=== PATIENT | male | born 1945 | race Caucasian/White ===

== ENCOUNTER 2019-11-13 13:50 | Inpatient (IN) | payer OTHER, BC ==
--- NOTE | 2019-11-13 14:18 | PDOC ---
History of Present Illness - General Chief Complaint: Urinary Problem Stated Complaint: URINARY PROBLEM/KIDNEY STONE Time Seen by Provider: 11/13/19 14:17 - History of Present Illness Initial Comments: HPI: 74yo M with PMH of kidney transplant, triple bypass, HTN, HLD, borderline DM, prostate CA s/p radiation ten years ago, COPD presenting with urinary retention. Patient states he has not urinated since yesterday afternoon. Has had hematuria for the last two weeks. Noticed that he may have been urinating in small quantities recently. Saw his urologist yesterday for a planned cystoscope. Per the patient, the urologist saw a "large stone." There was a plan to take care of the stone with a procedure on Friday at [facility]. Called his urologist two hours ago when he continued to have urinary retention. Per recent lab work, kidney function has been normal. No fevers or chills. PCP: Dr. Slim Montalvo Urology: Dr. Hidalgo ROS: Constitutional: no fever, no chills HEENT: no throat pain, no dysphagia Cardiovascular: no chest pain, no palpitations Respiratory: no cough, no shortness of breath Gastrointestinal: no abdominal pain, no nausea Genitourinary: +urinary retention, +hematuria Musculoskeletal: no myalgia, no arthralgia Skin: no rash, no itching Neurologic: no headache, no weakness Psych: no agitation, no anxiety PE: General: Awake, alert, and fully oriented, in no acute distress Head: No signs of trauma Eyes: EOMI, sclera anicteric ENT: Moist mucus membranes Neck: Normal ROM, supple Lungs: Lungs clear, Normal breath sounds Cardio: Regular rhythm, S1 and S2 present Abdomen: Tender to palpation in lower abdomen. No guarding, no rebound, no masses. No CVA tenderness. Extremities: Normal range of motion, Distal pulses present SKIN: Warm, Dry, normal turgor Neurologic: Cranial nerves II through XII grossly intact. Normal speech ED Course/MDM: DDX including but not limited to nephrolithiasis, UTI, BPH, cauda equina Labs, EKG, CXR CT spiral stone study 11/13/19 14:[address] [place] the urge to urinate; able to urinate, given urinal to collect sample 11/13/19 15:34 CT as reported by radiology: "Olga Matailion Name: ZAYRA OSULLIVAN DEPARTMENT OF RADIOLOGY Phys: Janine VargasViola RESIDENT : 1945 Age: 74 Sex : M [facility] Acct: [id number] Loc: [facility] Exam Date: 11/13/19 Status: DOMONIQUE Estrada [id number] Unit Number: [id number] EXAM#: TYPE/EXAM: RESULT: [id number] CT/SPIRAL - RENAL-STONE CT Renal ultrasound Clinical information: history of kidney transplant, urinary retention, ? stone Multiplanar imaging was performed. No intravenous or enteric contrast was administered. No prior CT studies available at this facility for direct comparison. In comparison to an MRI exam of 2011 note is made of interval development of marked bilateral atrophy involving the [place] kidneys with interval right lower quadrant renal transplantation. The right lower quadrant renal transplant emesis no evidence of nephrolithiasis or hydronephrosis. Bilateral 0.3 cm renal calcifications are noted probably representing nonobstructing calculi, less likely dystrophic parenchymal calcifications. No ureteral or urinary bladder calculus is visualized. A 3.7 x 3 cm fluid structure is noted adjacent to the lower pole of the right lower quadrant renal transplant possibly representing a lymphocele and less likely a urinary bladder diverticulum. Adjacent surgical clips are noted. No urinary bladder calculus is seen. The current urinary bladder volume is approximately 400 mL. No gross urinary tract mass lesion is identified on noncontrast imaging. Status post prostate interstitial brachytherapy. The periprostatic fat planes demonstrate no obvious pathology. No lymphadenopathy is identified on the basis of size criteria. Small bilateral inguinal hernias containing fat only The common bile duct is mildly dilated with a 1.2 cm diameter, previously measuring 1 cm at the time of the 2011 MRI exam. The gallbladder, liver, spleen , pancreas and adrenal glands demonstrate no discrete noncontrast pathology. There is no aortic aneurysm. Very extensive atherosclerotic thoracic calcifications are noted. Prominent atherosclerotic coronary artery calcifications are seen. There is partial imaging of cardiomegaly. The visualized osseous structures demonstrate no obvious CT evidence of acute pathology or neoplastic disease. Impression: The urinary bladder demonstrates minimal to mild overdistention (current volume approximate 4 mL) which may be on a physiologic basis versus mild/early retention. If clinically indicated correlation with pre and post void sonography may be performed. Status post prostate brachytherapy. A right lower quadrant renal transplant is noted without hydronephrosis or nephrolithiasis. Marked atrophy is seen involving the [place] kidneys bilaterally. Bilateral 0.3 cm calcifications are noted within the [place] kidneys probably representing nonobstructive calculi, less likely dystrophic parenchymal calcifications. No ureteral urinary bladder calculus is seen. A 3.7 x 3 cm fluid structure is noted interposed between the lower pole of the right lower quadrant renal transplant and the urinary bladder probably representing a lymphocele and less likely a urinary bladder diverticulum. Extensive atherosclerotic vessel calcifications are seen. There is partial imaging of cardiomegaly. The common bile duct is mildly dilated with a 1.2 cm diameter, previously measured 1 cm at the time of a 2011 abdomen MRI exam. Clinical/laboratory correlation is suggested. Follow-up imaging as clinically indicated. Reported By: Yong Nair MD 11/13/19 1614 " Could patient be having obstructive uropathy 11/13/19 16:26 Pending trial void 11/13/19 16:37 CBC WBC 8.1 K/mm3 (4.0-10.0) 11/13/19 15:03 RBC 4.50 M/mm3 (4.00-5.60) 11/13/19 15:03 Hgb 12.7 GM/dL (11.7-16.9) 11/13/19 15:03 Hct 38.9 % (35.4-49) 11/13/19 15:03 MCV 86.4 fl (80-96) 11/13/19 15:03 MCH 28.2 pg (25.7-33.7) 11/13/19 15:03 MCHC 32.6 g/dl (32.0-35.9) 11/13/19 15:03 RDW 14.8 % (11.9-15.9) 11/13/19 15:03 Plt Count 177 K/MM3 (134-434) 11/13/19 15:03 MPV 9.4 fl (7.5-11.1) D 11/13/19 15:03 Absolute Neuts (auto) 7.1 K/mm3 (1.5-8.0) 11/13/19 15:03 Neutrophils % 88.2 % (42.8-82.8) H 11/13/19 15:03 Lymphocytes % 6.5 % (8-40) L 11/13/19 15:03 Monocytes % 4.5 % (3.8-10.2) 11/13/19 15:03 Eosinophils % 0.2 % (0-4.5) 11/13/19 15:03 Basophils % 0.6 % (0-2.0) 11/13/19 15:03 Nucleated RBC % 0 % (0-0) 11/13/19 15:03 No leukocytosis CMP Sodium 139 mmol/L (136-145) 11/13/19 15:03 Potassium 5.5 mmol/L (3.5-5.1) H 11/13/19 15:03 Chloride 109 mmol/L (98-107) H 11/13/19 15:03 Carbon Dioxide 26 mmol/L (21-32) 11/13/19 15:03 Anion Gap 5 MMOL/L (8-16) L 11/13/19 15:03 BUN 20.7 mg/dL (7-18) H 11/13/19 15:03 Creatinine 1.6 mg/dL (0.55-1.3) H 11/13/19 15:03 Est GFR (CKD-EPI)AfAm 48.81 11/13/19 15:03 Est GFR (CKD-EPI)NonAf 42.11 11/13/19 15:03 Random Glucose 139 mg/dL (74-106) H 11/13/19 15:03 Calcium 9.2 mg/dL (8.5-10.1) 11/13/19 15:03 Total Bilirubin 0.5 mg/dL (0.2-1) 11/13/19 15:03 AST 24 U/L (15-37) 11/13/19 15:03 ALT 19 U/L (13-61) 11/13/19 15:03 Alkaline Phosphatase 69 U/L (45-117) 11/13/19 15:03 Troponin I 0.04 ng/ml (0.00-0.05) 11/13/19 15:03 Total Protein 7.2 g/dl (6.4-8.2) 11/13/19 15:03 Albumin 3.9 g/dl (3.4-5.0) 11/13/19 15:03 Potassium elevated Cr elevated Tpn indeterminate Patient's last Cr was 1.1 in September 2019 at [facility] to transplant team Patient's transplant physician is Dr. Hiral Wadsworth 11/13/19 17:22 EKG: rate 59, Qtc 473, concern for deepened twi on V4-V6 when compared to EKG Discussed case with Dr. Villa, transplant surgeon at [facility]. Stat transfer is not required. If patient has repeat retention, he can go to [facility] for urology evaluation. Plan to observe patient to monitor for repeat hematurian as patient is on Eliquis Call to Dr. Hidalgo's office, - no answer Call to Dr. Hidalgo's cell, . Discussed case with him Patient had a urethral stone seen on cystocope yesterday Plan for admission 11/13/19 17:[address] Montalvo's service, , for admission Awaiting callback 11/13/19 17:[address] Montalvo who accepted the patient for admission under himself 11/13/19 17:[address] Corona. Discussed case with him. He recommended dose of ceftriaxone. Ordered 11/13/19 19:34 Past History - Past Medical History Allergies/Adverse Reactions: Allergies Allergy/AdvReac Type Severity Reaction Status Date / Time No Known Allergies Allergy Verified 11/13/19 14:00 Home Medications: Ambulatory Orders Apixaban [Eliquis] 11/13/19 Apixaban [Eliquis] 5 mg PO 11/13/19 Aspirin 81 mg PO 11/13/19 Atorvastatin Ca [Lipitor] 40 mg PO HS 11/13/19 Cholecalciferol (Vitamin D3) [Vitamin D3 -] 1,000 unit PO DAILY 11/13/19 Dofetilide 125 mg PO DAILY 11/13/19 Magnesium Oxide 400 mg PO 11/13/19 Metoprolol Succinate 50 mg PO DAILY 11/13/19 Mycophenolate Mofetil [Cellcept -] 500 mg PO BID 11/13/19 Tacrolimus 2.5 mg PO DAILY 11/13/19 Vitamin B Complex 1 each PO 11/13/19 predniSONE [Deltasone -] 5 mg PO DAILY 11/13/19 COPD: No Diabetes: Yes Disorders: Yes (urethra stone needs sx on friday.) HTN: Yes - Surgical History Abdominal Surgery: Yes (kidney transplant at [facility] on 01/08/2018) - Psycho Social/Smoking Cessation Hx Smoking History: Unknown if ever smoked Hx Alcohol Use: No Drug/Substance Use Hx: No *Physical Exam - Vital Signs Last Vital Signs Temp Pulse Resp BP Pulse Ox 97.5 F L 67 16 168/86 100 11/13/19 13:55 11/13/19 13:55 11/13/19 13:55 11/13/19 13:55 11/13/19 13:55 ED Treatment Course - LABORATORY CBC & Chemistry Diagram: 11/13/19 15:03 11/13/19 15:03 Discharge - Discharge Information Problems reviewed: Yes Clinical Impression/Diagnosis: Postprocedural urinary retention Hematuria Qualifiers: Hematuria type: gross Qualified Code(s): R31.0 - Gross hematuria Condition: Guarded - Admission Yes - Follow up/Referral - Patient Discharge Instructions - Post Discharge Activity
[2019-11-13] MEDS ORDERED: SODIUM CHLORIDE 1,000 ML IV STA (15:46)
[2019-11-13] MEDS ORDERED: LIDOCAINE HCL 2% JELLY 10 ML CARTRIDGE ONE (15:50)
[2019-11-13 16:15] LABS: EPI CELLS 0 /HPF (0-5/HPF); HYALINE CASTS 55 /lpf (0-8); URINE APPEARANCE TURBID; URINE BACTERIA 0 /hpf (NEGATIVE); URINE BILIRUBIN 2+ (NEGATIVE); URINE COLOR RED; URINE GLUCOSE (UA) NEGATIVE (NEGATIVE); URINE KETONE NEGATIVE (NEGATIVE); URINE LEUK ESTERASE 2+ (NEGATIVE); URINE NITRITE POSITIVE (NEGATIVE); URINE PROTEIN 2+ (NEGATIVE); URINE RBC 1651 /hpf (0-4); URINE UROBILINOGEN 0.2 mg/dL (0.2-1.0); URINE WBC 2 /hpf (0-5)
[2019-11-13 16:27] LABS: INR 1.21 (0.83-1.09); PROTHROMBIN TIME (PATIENT) 14.3 SEC (9.7-13.0)
[2019-11-13 16:29] LABS: ACTIVATED PTT 35.9 SECONDS (25.2-36.5)
[2019-11-13 16:33] LABS: ALBUMIN 3.9 g/dl (3.4-5.0); BILIRUBIN,TOTAL 0.5 mg/dL (0.2-1); BLOOD UREA NITROGEN 20.7 mg/dL (7-18); CALCIUM 9.2 mg/dL (8.5-10.1); CREATININE 1.6 mg/dL (0.55-1.3); POTASSIUM 5.5 mmol/L (3.5-5.1); TOT PROT 7.2 g/dl (6.4-8.2)
--- NOTE | 2019-11-13 16:33 | PDOC ---
Documentation entered by Paul Carlton SCRIBE, acting as scribe for Mercedes Simmons MD. Mercedes Simmons MD: This documentation has been prepared by the Brandt leavitt Nirvannie, SCRIBE, under my direction and personally reviewed by me in its entirety. I confirm that the documentation accurately reflects all work, treatment, procedures, and medical decision making performed by me. Attending Attestation - Resident Resident Name: Viola Vargas - ED Attending Attestation I have performed the following: I have examined & evaluated the patient, The case was reviewed & discussed with the resident, I agree w/resident's findings & plan, Exceptions are as noted - HPI HPI: 11/13/19 15:27 The patient is a 74 year old male, with a significant past medical history of HTN, HLD, borderline DM, triple bypass, renal transplant (at [facility] 18), prostate cancer (s/p radiation approx 10 years), and COPD, who presents to the emergency department with 1 day of urinary retention. As per patient, he has been unable to urinate since yesterday afternoon and endorses 2 weeks of hematuria. Patient also notes his urine when he was able to produce has been less in quantity. Patient is currently being worked up with a urologist (last saw yesterday) and is planned for a cystoscope Friday secondary to a large stone. He denies any recent fevers, chills, headache or dizziness. He denies any recent nausea, vomit, diarrhea or constipation. He denies any recent chest pain or shortness of breath. Allergies: NKDA Primary Care Physician: Dr. Kirby Montalvo - Physicial Exam PE: 11/13/19 16:31 awake alert lungs clear bilat heart rrr no mrh abd soft obese. no palp bladder distension ( post void) no cva tenderness. alert oriented x 3. - Medical Decision Making 11/13/19 16:32 74 yo M h/o bph cabg, hematuria. plan ct a/p labs ua pt voided in ED, feels much improved. will page dr aburto. ct no hydro in tranplanted kidney. quesitonable lympocele vs. bladder diverticulum will likely dc home.
[2019-11-13 16:47] LABS: BASO % 0.6 % (0-2.0); EOS % 0.2 % (0-4.5); HEMATOCRIT 38.9 % (35.4-49); HEMOGLOBIN 12.7 GM/dL (11.7-16.9); LYMPH % 6.5 % (8-40); MCH 28.2 pg (25.7-33.7); MCHC 32.6 g/dl (32.0-35.9); MEAN CELL VOLUME 86.4 fl (80-96); MEAN PLT VOLUME 9.4 fl (7.5-11.1); MONO % 4.5 % (3.8-10.2); NEUT % 88.2 % (42.8-82.8); PLATELET COUNT 177 K/MM3 (134-434); RDW 14.8 % (11.9-15.9); WHITE BLOOD COUNT 8.1 K/mm3 (4.0-10.0)
--- NOTE | 2019-11-13 16:51 | EKG ---
Test Reason : Blood Pressure : / mmHG Vent. Rate : 059 BPM Atrial Rate : 059 BPM P-R Int : 178 ms QRS Dur : 090 ms QT Int : 478 ms P-R-T Axes : 056 059 223 degrees QTc Int : 473 ms SINUS BRADYCARDIA WITH PREMATURE ATRIAL COMPLEXES MINIMAL VOLTAGE CRITERIA FOR LVH, MAY BE NORMAL VARIANT PROLONGED QT ABNORMAL ECG WHEN COMPARED WITH ECG OF 26-FEB-2010 16:07, PREMATURE ATRIAL COMPLEXES ARE NOW PRESENT ST NOW DEPRESSED IN INFERIOR LEADS T WAVE INVERSION NOW EVIDENT IN INFERIOR LEADS T WAVE INVERSION MORE EVIDENT IN ANTERIOR LEADS CLINICAL CORRELATION IS RECOMMENDED Confirmed by LETTY BHATTI, BRUNILDA ([id number]) on 11/13/2019 4:51:23 PM Referred By: Confirmed By:BRUNILDA SAENZ MD
[2019-11-13] MEDS ORDERED: CEFTRIAXONE 1 GM/50 ML BAG ONE (19:55)
[2019-11-13 22:04] VITALS: BMI 31.1
[2019-11-13] MEDS ORDERED: SODIUM POLYSTYRENE SULFONATE 15 GM/60 ML BOTTLE PO ONE (23:30)
[2019-11-14 07:26] LABS: BASO % 0.6 % (0-2.0); EOS % 1.4 % (0-4.5); HEMATOCRIT 36.9 % (35.4-49); HEMOGLOBIN 12.1 GM/dL (11.7-16.9); LYMPH % 10.2 % (8-40); MCHC 32.9 g/dl (32.0-35.9); MEAN PLT VOLUME 8.8 fl (7.5-11.1); MONO % 9.3 % (3.8-10.2); NEUT % 78.5 % (42.8-82.8); PLATELET COUNT 160 K/MM3 (134-434); RBC 4.34 M/mm3 (4.00-5.60); RDW 14.7 % (11.9-15.9); WHITE BLOOD COUNT 5.7 K/mm3 (4.0-10.0)
[2019-11-14 08:02] LABS: ALBUMIN 3.7 g/dl (3.4-5.0); BILIRUBIN,TOTAL 0.9 mg/dL (0.2-1); BLOOD UREA NITROGEN 19.8 mg/dL (7-18); CALCIUM 8.9 mg/dL (8.5-10.1); CREATININE 1.2 mg/dL (0.55-1.3); POTASSIUM 4.2 mmol/L (3.5-5.1); TOT PROT 6.6 g/dl (6.4-8.2)
--- NOTE | 2019-11-14 09:53 | CON.NEP ---
Consult Consult Specialty:: nephrology Reason for Consultation:: kidney transplant - History of Present Illness Chief Complaint: dysuria/hematuria History of Present Illness: This is a 74 year old man with history of afib, CAD s/p CABG, ckd, s/p cadaveric renal transplant from a 21 yo donor who presented with abdominal pain and inability to urinate. Hehad some hematuria and had seen urology 2 days ago when he had a cystoscopy. Was told he had a urethral stone. He had significant burning on urination and has been urinating very little. Stopped urinating for 2 days. Had no fever or chills. He is mainatained on prograf, mmf and prednisone. He has an appointment to see Dr Peres. - History Source History Provided By: Patient Limitations to Obtaining History: No Limitations - Past Medical History Cardio/Vascular: Yes: CAD, HTN Renal/: Yes: Cancer (prostate ca) Endocrine: Yes: Diabetes Mellitus - Alcohol/Substance Use Hx Alcohol Use: No - Smoking History Smoking history: Unknown if ever smoked Have you smoked in the past 12 months: No Home Medications - Allergies Allergies/Adverse Reactions: Allergies Allergy/AdvReac Type Severity Reaction Status Date / Time No Known Allergies Allergy Verified 11/13/19 14:00 - Home Medications Home Medications: Ambulatory Orders Apixaban [Eliquis] 11/13/19 Apixaban [Eliquis] 5 mg PO 11/13/19 Aspirin 81 mg PO 11/13/19 Atorvastatin Ca [Lipitor] 40 mg PO HS 11/13/19 Cholecalciferol (Vitamin D3) [Vitamin D3 -] 1,000 unit PO DAILY 11/13/19 Dofetilide 125 mg PO DAILY 11/13/19 Magnesium Oxide 400 mg PO 11/13/19 Metoprolol Succinate 50 mg PO DAILY 11/13/19 Mycophenolate Mofetil [Cellcept -] 500 mg PO BID 11/13/19 Tacrolimus 2.5 mg PO DAILY 11/13/19 Vitamin B Complex 1 each PO 11/13/19 predniSONE [Deltasone -] 5 mg PO DAILY 11/13/19 Family Medical History Family Hx Renal Disease: Mother (was on dialysis in her 80s) Review of Systems - Review of Systems Constitutional: reports: Weakness Eyes: reports: No Symptoms HENT: reports: No Symptoms Neck: reports: No Symptoms Cardiovascular: reports: No Symptoms Respiratory: reports: No Symptoms Gastrointestinal: reports: Abdominal Pain Genitourinary: reports: Burning, Dysuria, Pain Breasts: reports: No Symptoms Reported Musculoskeletal: reports: No Symptoms Integumentary: reports: No Symptoms Neurological: reports: No Symptoms Endocrine: reports: No Symptoms Hematology/Lymphatic: reports: No Symptoms Psychiatric: reports: No Symptoms Nephrology Consult - Height Height: 5 ft 8 in - Weight Weight: 205 lb 2 oz - BMI Body Mass Index (BMI): 31.1 - Lab Results CBC,BMP: CBC, BMP 11/14/19 05:48 11/14/19 05:48 Anion Gap: Anion Gap Anion Gap 9 MMOL/L (8-16) 11/14/19 05:48 - Imaging Chest X-ray: Report Reviewed - Physical Examination Vital Signs: Vital Signs Temperature 97.7 F 11/14/19 02:05 Pulse Rate 70 11/14/19 06:00 Respiratory Rate 18 11/14/19 06:00 Blood Pressure 125/70 11/14/19 06:00 O2 Sat by Pulse Oximetry (%) 96 11/13/19 19:05 Constitutional: Yes: Well Nourished, Anxious Eyes: Yes: Conjunctiva Clear HENT: Yes: Atraumatic, Normocephalic Neck: Yes: Supple, Trachea Midline Cardiovascular: Yes: Regular Rate and Rhythm Respiratory: Yes: Regular, CTA Bilaterally Gastrointestinal: Yes: Normal Bowel Sounds Renal/: Yes: Other (suprapubic tenderness). No: Bladder Distention Musculoskeletal: Yes: WNL Extremities: Yes: WNL Edema: No Neurological: Yes: Alert, Oriented Psychiatric: Yes: Alert, Oriented Assessment/Plan 74 yo with with history of ACUTE CARE SURGEON done preemptively 2 years ago who presents with RADHA probably from urinary retention. His renal function already improved. 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
[2019-11-14] MEDS ORDERED: DOFETILIDE 0.125 MG CAPSULE PO SCH ×2 (10:00)
[2019-11-14] MEDS ORDERED: PANTOPRAZOLE SODIUM 40 MG VIAL IVPUSH SCH (10:00)
[2019-11-14] MEDS ORDERED: ASPIRIN COATED 81 MG TABLET.EC PO SCH (10:00)
[2019-11-14] MEDS ORDERED: MYCOPHENOLATE MOFETIL 500 MG TABLET PO SCH (10:00)
[2019-11-14] MEDS ORDERED: APIXABAN 5 MG TABLET PO SCH (10:00)
[2019-11-14] MEDS ORDERED: TACROLIMUS ANHYDROUS PO SCH (10:00)
[2019-11-14] MEDS ORDERED: predniSONE 5 MG TABLET (UD) PO SCH (10:00)
[2019-11-14] MEDS ORDERED: CHOLECALCIFEROL (VIT D3) 1,000 UNIT (25 MCG) TABLET PO SCH (10:00)
[2019-11-14] MEDS ORDERED: TACROLIMUS 0.5 MG CAPSULE PO SCH (10:15)
[2019-11-14] MEDS ORDERED: TACROLIMUS ANHYDROUS 1 MG CAPSULE PO SCH (10:27)
--- NOTE | 2019-11-14 10:46 | HP ---
Admitting History and Physical - Admission Chief Complaint: pt went [facility] friday[facility]/o hemoturia cysto showed urethral stone blood in urin 2 wks prior h/o prostate r/t tx for cancer cabg stents x 2 ? a fibb mvr and kid transplant 2018 htn ? uti now dm History Source: Patient Limitations to Obtaining History: No Limitations - Past Medical History Cardiovascular: Yes: CAD, HTN Gastrointestinal: Yes: Cancer (prostate ca) Renal/: Yes: Renal Inusuff, Cancer (prostate ca), Hematuria, UTI, Other ( urine retention sed stone in urethra) Endocrine: Yes: Diabetes Mellitus - Past Surgical History Past Surgical History: Yes: CABG, Joint Replacement, Kidney Transplant Additional Past Surgical History: hattie knee sx - Smoking History Smoking history: Unknown if ever smoked Have you smoked in the past 12 months: Yes - Alcohol/Substance Use Hx Alcohol Use: No History of Substance Use: reports: None - Social History Usual Living Arrangement: Yes: With Significant Other History of Recent Travel: No Home Medications - Allergies Allergies/Adverse Reactions: Allergies Allergy/AdvReac Type Severity Reaction Status Date / Time No Known Allergies Allergy Verified 11/13/19 14:00 - Home Medications Home Medications: Ambulatory Orders Apixaban [Eliquis] 11/13/19 Apixaban [Eliquis] 5 mg PO 11/13/19 Aspirin 81 mg PO 11/13/19 Atorvastatin Ca [Lipitor] 40 mg PO HS 11/13/19 Cholecalciferol (Vitamin D3) [Vitamin D3 -] 1,000 unit PO DAILY 11/13/19 Dofetilide 125 mg PO DAILY 11/13/19 Magnesium Oxide 400 mg PO 11/13/19 Metoprolol Succinate 50 mg PO DAILY 11/13/19 Mycophenolate Mofetil [Cellcept -] 500 mg PO BID 11/13/19 Tacrolimus 2.5 mg PO DAILY 11/13/19 Vitamin B Complex 1 each PO 11/13/19 predniSONE [Deltasone -] 5 mg PO DAILY 11/13/19 Family Medical History Family History: Unremarkable Review of Systems - Review of Systems Constitutional: reports: No Symptoms Eyes: reports: No Symptoms HENT: reports: No Symptoms Neck: reports: No Symptoms Cardiovascular: reports: No Symptoms Respiratory: reports: No Symptoms Gastrointestinal: reports: No Symptoms Genitourinary: reports: Hematuria, Other (can not urinate) Breasts: reports: No Symptoms Reported Musculoskeletal: reports: No Symptoms Integumentary: reports: No Symptoms Neurological: reports: No Symptoms Endocrine: reports: No Symptoms Hematology/Lymphatic: reports: No Symptoms Psychiatric: reports: No Symptoms Physical Examination Vital Signs: Vital Signs Temperature 98.1 F 11/14/19 10:00 Pulse Rate 64 11/14/19 10:00 Respiratory Rate 11/14/19 10:00 Blood Pressure 156/91 11/14/19 10:00 O2 Sat by Pulse Oximetry (%) 96 11/13/19 19:05 Constitutional: Yes: Mild Distress Eyes: Yes: WNL HENT: Yes: WNL Neck: Yes: WNL Cardiovascular: Yes: WNL Respiratory: Yes: WNL Gastrointestinal: Yes: Distention ...Rectal Exam: Yes: Deferred Renal/: Yes: Hematuria, Other (retention) Breast(s): Yes: WNL Musculoskeletal: Yes: WNL Extremities: Yes: WNL Edema: No Peripheral Pulses WNL: Yes Peripheral Pulses: Left Radial: 0 Integumentary: Yes: WNL Neurological: Yes: WNL ...Motor Strength: WNL Psychiatric: Yes: WNL Labs: CBC, BMP 11/14/19 05:48 11/14/19 05:48 Assessment/Plan started his metformin pain control iv post urination fs bid cont tx as is cleared for procedure cysto retrival stone from urethra dont stop anticoagulation spoke to gu agreed
[2019-11-14] MEDS ORDERED: MORPHINE SULFATE 2 MG/ML VIAL IVPUSH PRN ×2 (10:51→21:35)
--- NOTE | 2019-11-14 11:37 | CON.CARD ---
Consult Consult Specialty:: Cardiology Referred by:: Dr. Slim Montalvo Reason for Consultation:: History of CAD and atrial flutter - History of Present Illness Chief Complaint: Urinary retention and hematuria History of Present Illness: 74 year-old man with a PMHx of HTN, HLD, CAD, s/p PCI and CABG [address] [facility], persistent atrial flutter, s/p sucessfulRFA ablationn for symptomatic atrial flutter on 08/31/2018, on aspirin and Eliquis, atrial tachycardia and controlled with dofetilide 125mcg BID, ESRD s/prenal transplant 12/2017 with good transplant renal function, also history of prostate CA s/p radiation ten years ago, COPD presented to ED 11/13/19 with urinary retention and hematuria. Seen by his urologist and planned for cystoscope and stone removal. Mr. Seay sees Dr. Osorio for his cardiac care. He was last seen by Dr. Osorio on 07/19/19. He has been doing well from cardiac stand point. He reports no chest pain, shortness of breath or palpitation. No edema, orthopnea or PND. His baseline exercise tolerance is good. ECG 11/13/19: sinus bradycardia at 59 BPM with APCs. LVH with repolarization abnormalities (anterolateral ST-T abnormalities). Prolonged Q-Tc. No significant changes from his previous ECG on 06/04/2019 Tele shows sinus rhythm with frequent single APCs and occasional atrial bigeminy. Cardiac tests at [facility] Echo 08/05/2018: Mild concentric LVH with normal wall motion and systolic function. LVEF 65%. Normal RV. Mild LA dilatation. FCAV without stenosis. Mild MR. Mild TR. Regadenoson nuclear stress test 08/03/2019: Non-diagnostic ECG with chest pressure during regadenoson stress. A medium sized severe intensity fixed defect of the basal and mid inferior and inferoseptal rodriguez with a small amount of dago-infarction ischemia. This does not appear different from the previously described report from 01/23/15. - History Source History Provided By: Patient, Family Member, Medical Record Limitations to Obtaining History: No Limitations - Past Medical History Cardio/Vascular: Yes: CAD, HTN Gastrointestinal: Yes: Cancer (prostate ca) Renal/: Yes: Renal Inusuff, Cancer (prostate ca), Hematuria, UTI, Other ( urine retention sed stone in urethra) Endocrine: Yes: Diabetes Mellitus - Past Surgical History Past Surgical History: Yes: CABG, Joint Replacement, Kidney Transplant - Alcohol/Substance Use Hx Alcohol Use: No History of Substance Use: reports: None - Smoking History Smoking history: Unknown if ever smoked Have you smoked in the past 12 months: Yes - Social History History of Recent Travel: No Home Medications - Allergies Allergies/Adverse Reactions: Allergies Allergy/AdvReac Type Severity Reaction Status Date / Time No Known Allergies Allergy Verified 11/13/19 14:00 - Home Medications Home Medications: Ambulatory Orders Apixaban [Eliquis] 11/13/19 Apixaban [Eliquis] 5 mg PO 11/13/19 Aspirin 81 mg PO 11/13/19 Atorvastatin Ca [Lipitor] 40 mg PO HS 11/13/19 Cholecalciferol (Vitamin D3) [Vitamin D3 -] 1,000 unit PO DAILY 11/13/19 Dofetilide 125 mg PO DAILY 11/13/19 Magnesium Oxide 400 mg PO 11/13/19 Metoprolol Succinate 50 mg PO DAILY 11/13/19 Mycophenolate Mofetil [Cellcept -] 500 mg PO BID 11/13/19 Tacrolimus 2.5 mg PO DAILY 11/13/19 Vitamin B Complex 1 each PO 11/13/19 predniSONE [Deltasone -] 5 mg PO DAILY 11/13/19 Review of Systems - Review of Systems Constitutional: reports: No Symptoms Eyes: reports: No Symptoms HENT: reports: No Symptoms Neck: reports: No Symptoms Cardiovascular: reports: No Symptoms Respiratory: reports: No Symptoms Gastrointestinal: reports: No Symptoms Genitourinary: reports: Burning, Flank Pain, Hematuria Breasts: reports: No Symptoms Reported Musculoskeletal: reports: No Symptoms Integumentary: reports: No Symptoms Neurological: reports: No Symptoms Endocrine: reports: No Symptoms Hematology/Lymphatic: reports: No Symptoms Psychiatric: reports: No Symptoms Vital Signs: Vital Signs Temperature 98.1 F 11/14/19 10:00 Pulse Rate 64 11/14/19 10:00 Respiratory Rate 11/14/19 10:00 Blood Pressure 156/91 11/14/19 10:00 O2 Sat by Pulse Oximetry (%) 97 11/14/19 09:00 General: Well developed. Obese. No acute distress. Head: Normocephalic. Atraumatic, Eyes: PERRLA, EOMI. Sclerae anicteric. Conjunctivae clear. Neck: Supple. No JVD. No bruits. Heart: Normal S1, S2: Regularly irregular rhythm and rate. No murmur. No gallop or rub. Lungs: Symmetrical air entry. Clear to auscultation. No crackle. No wheezing or rhonchi. Abdomen: Soft. Bowel sound positive. Non tender. No masses. Extremities: No edema. No clubbing or cyanosis. PD 2+, equal bilaterally. Neuro: Intact, no focal findings. AAO X3 - Other Data Labs, Other Data: CBC, BMP 11/14/19 05:48 11/14/19 05:48 INR, PTT INR 1.21 (0.83-1.09) H 11/13/19 15:03 Troponin, BNP 11/13/19 11/14/19 15:03 05:48 Troponin I 0.04 0.07 H Troponin, BNP 11/13/19 11/14/19 15:03 05:48 Troponin I 0.04 0.07 H Assessment/Plan 74 year-old man with a PMHx of HTN, HLD, CAD, s/p PCI and CABG [address] [facility], persistent atrial flutter, s/p sucessfulRFA ablationn for symptomatic atrial flutter on 08/31/2018, on aspirin and Eliquis, atrial tachycardia and controlled with dofetilide 125mcg BID, ESRD s/prenal transplant 12/2017 with good transplant renal function, also history of prostate CA s/p radiation ten years ago, COPD presented to ED 11/13/19 with urinary retention and hematuria. Seen by his urologist and planned for cystoscope and stone removal. Mr. Seay sees Dr. Osorio for his cardiac care. He was last seen by Dr. Osorio on 07/19/19. He has been doing well from cardiac stand point. He reports no chest pain, shortness of breath or palpitation. No edema, orthopnea or PND. His baseline exercise tolerance is good. ECG 11/13/19: sinus bradycardia at 59 BPM with APCs. LVH with repolarization abnormalities (anterolateral ST-T abnormalities). Prolonged Q-Tc. No significant changes from his previous ECG on 06/04/2019 Tele shows sinus rhythm with frequent single APCs and occasional atrial bigeminy. Cardiac tests at [facility] Echo 08/05/2018: Mild concentric LVH with normal wall motion and systolic function. LVEF 65%. Normal RV. Mild LA dilatation. FCAV without stenosis. Mild MR. Mild TR. Regadenoson nuclear stress test 08/03/2019: Non-diagnostic ECG with chest pressure during regadenoson stress. A medium sized severe intensity fixed defect of the basal and mid inferior and inferoseptal rodriguez with a small amount of dago-infarction ischemia. This does not appear different from the previously described report from 01/23/15. 1) Preop cardiac risk assessment: The patient is at low risk of cardiac complications for the planned cystoscope and stone removal. There are no direct cardiac contraindications to the operation. The patient has been optimized from cardiac standpoint. No further preoperative cardiac testing is needed at this time. -May hold Eliquis for 2-3 days if it is needed since the patient is post atrial flutter ablation, remains in sinus with frequent APCs. No history of tele evidence of atrial fibrillation. 2) Atrial arrhythmia - atrial flutter and atrial tachycardia: Currently in sinus with frequent APCs. No history of tele evidence of atrial fibrillation. -Continue dofetilide (Tikosyn) -May hold Eliquis for 2-3 days if it is needed. 3) CAD, s/p PCI and CABG in 2007: Stable without recurrent angina or CHF. Continue aspirin, metoprolol and atorvastatin. Please do not hesitate to call us for re-consult at any time if any further questions or additional issue arises regarding this patient.
[2019-11-14] MEDS ORDERED: CEFTRIAXONE 1 GM in DEXTROSE 5%-WATER - 50 ML IVPB SCH (11:45)
--- NOTE | 2019-11-14 11:52 | CON.ID ---
Consult - History of Present Illness History of Present Illness: 74 y.o. male with PMH of CAD s/p CABG, CKD s/p renal transplant in 2018 (on Prograf, Prednisone, MMF), Prostate CA s/p RT, HTN, HLD, COPD presented to the ER with c/o severe suprapubic pain/spasms and inability to urinate for 2 days. He states that he began having hematuria 2 wks ago and had a follow up appt with his Urologist on Friday. He had a cystoscopy done and was told he had a urethral stone. Severe pain and urinary urgency with little urine output began yesterday. He denies fever/chills, flank pain, CP, SOB, constipation or any other specific complaints. In the ER he was found to have elevated BUN/ Creatinine and was started on IV fluids and fully voided, still with blood tinged urine. He has been afebrile without leukocytosis but UA is suggestive of UTI. Urine cultures are pending. Currently feels pressure and feeling of needing to void but still has low urine output. Scheduled for cystoscopy today. - History Source History Provided By: Patient Limitations to Obtaining History: No Limitations - Past Medical History Cardio/Vascular: Yes: CAD, HTN Gastrointestinal: Yes: Cancer (prostate ca) Renal/: Yes: Renal Inusuff, Cancer (prostate ca), Hematuria, UTI, Other ( urine retention sed stone in urethra) Endocrine: Yes: Diabetes Mellitus - Past Surgical History Past Surgical History: Yes: CABG, Joint Replacement, Kidney Transplant - Alcohol/Substance Use Hx Alcohol Use: No History of Substance Use: reports: None - Smoking History Smoking history: Unknown if ever smoked Have you smoked in the past 12 months: Yes - Social History History of Recent Travel: No Home Medications - Allergies Allergies/Adverse Reactions: Allergies Allergy/AdvReac Type Severity Reaction Status Date / Time No Known Allergies Allergy Verified 11/13/19 14:00 - Home Medications Home Medications: Ambulatory Orders Apixaban [Eliquis] 11/13/19 Apixaban [Eliquis] 5 mg PO 11/13/19 Aspirin 81 mg PO 11/13/19 Atorvastatin Ca [Lipitor] 40 mg PO HS 11/13/19 Cholecalciferol (Vitamin D3) [Vitamin D3 -] 1,000 unit PO DAILY 11/13/19 Dofetilide 125 mg PO DAILY 11/13/19 Magnesium Oxide 400 mg PO 11/13/19 Metoprolol Succinate 50 mg PO DAILY 11/13/19 Mycophenolate Mofetil [Cellcept -] 500 mg PO BID 11/13/19 Tacrolimus 2.5 mg PO DAILY 11/13/19 Vitamin B Complex 1 each PO 11/13/19 predniSONE [Deltasone -] 5 mg PO DAILY 11/13/19 Review of Systems - Review of Systems Constitutional: reports: No Symptoms. denies: Chills, Diaphoresis, Fever, Lethargy, Loss of Appetite, Malaise, Night Sweats, Unintentional Wgt. Loss, Weakness, Other Eyes: reports: No Symptoms. denies: Blind Spots, Blurred Vision, Double Vision , Eye Pain, Floaters, Photophobia, Recent Change in Vision, Other HENT: reports: No Symptoms. denies: Difficult Swallowing, Ear Discharge, Ear Pain, Epistaxis, Gingival Bleeding, Hearing Loss, Mouth Swelling, Nasal Congestion, Ocular Prosthesis, Throat Pain, Toothache, Ringing in Ears, Other Neck: reports: No Symptoms. denies: Decreased ROM, Lumps, Pain on Movement, Stiffness, Swollen Glands, Tenderness, Other Cardiovascular: reports: No Symptoms. denies: Chest Pain, Edema, Palpitations, Shortness of Breath, Other Respiratory: reports: No Symptoms. denies: Cough, Exercise Intolerance, Hemoptysis, Orthopnea, PND, Snoring, SOB, SOB on Exertion, Wheezing, Other Gastrointestinal: reports: No Symptoms. denies: Abdominal Pain, Bloating, Constipation, Diarrhea, Dysphagia, Indigestion, Melena, Nausea, Rectal Bleeding , Vomiting, Vomiting Blood, Other Genitourinary: reports: Burning, Pain, Urgency Musculoskeletal: reports: No Symptoms. denies: Back Pain, Crepitus, Decreased ROM, Extremity Pain, Joint Pain, Joint Swelling, Muscle Pain, Muscle Cramps, Muscle Weakness, Other Integumentary: reports: No Symptoms. denies: Blister, Bruising, Change in Color , Eczema, Erythema, Incision, Lesions, Lump, Pallor, Pruritis, Rash, Wound, Other Neurological: reports: No Symptoms. denies: Change in LOC, Change in Speech, Confusion, Dizziness, Headache, Incoordination, Numbness, Parasthesia, Pre- Existing Deficit, Seizure, Syncope, Tremors, Unsteady Gait, Weakness, Other Endocrine: reports: No Symptoms. denies: Excessive Sweating, Flushing, Increased Hunger, Increased Thirst, Intolerance to Cold, Intolerance to Heat, Unexplained Weight Gain, Unexplained Weight Loss, Other Hematology/Lymphatic: reports: No Symptoms. denies: Easily Bruised, Excessive Bleeding, Swollen Glands, Other Psychiatric: reports: No Symptoms. denies: Altered Sleep Pattern, Anxiety, Depression, Hallucinations, Panic, Paranoia, Suicidal, Other Physical Exam Vital Signs: Vital Signs Temperature 98.1 F 11/14/19 10:00 Pulse Rate 64 11/14/19 10:00 Respiratory Rate 11/14/19 10:00 Blood Pressure 156/91 11/14/19 10:00 O2 Sat by Pulse Oximetry (%) 97 11/14/19 09:00 Constitutional: Yes: Well Nourished, No Distress, Calm Eyes: Yes: WNL, Conjunctiva Clear, EOM Intact HENT: Yes: WNL, Atraumatic, Normocephalic Neck: Yes: WNL, Supple, Trachea Midline Cardiovascular: Yes: WNL, Pulse Irregular Respiratory: Yes: CTA Bilaterally Gastrointestinal: Yes: WNL, Normal Bowel Sounds, Soft, Abdomen, Obese Renal/: Yes: Hematuria, Oliguria, Other (Suprapubic pressure) Musculoskeletal: Yes: WNL Extremities: Yes: WNL Edema: No Peripheral Pulses WNL: Yes Integumentary: Yes: WNL Neurological: Yes: Alert, Oriented Psychiatric: Yes: Alert Labs: CBC, BMP 11/14/19 05:48 11/14/19 05:48 Laboratory Tests 11/13/19 11/13/19 11/13/19 15:03 15:03 15:03 WBC 8.1 RBC 4.50 Hgb 12.7 Hct 38.9 MCV 86.4 MCH 28.2 MCHC 32.6 RDW 14.8 Plt Count 177 MPV 9.4 D Absolute Neuts (auto) 7.1 Neutrophils % 88.2 H Lymphocytes % 6.5 L Monocytes % 4.5 Eosinophils % 0.2 Basophils % 0.6 Nucleated RBC % 0 PT with INR 14.30 H INR 1.21 H PTT (Actin FS) 35.9 Sodium 139 Potassium 5.5 H Chloride 109 H Carbon Dioxide 26 Anion Gap 5 L BUN 20.7 H Creatinine 1.6 H Est GFR (CKD-EPI)AfAm 48.81 Est GFR (CKD-EPI)NonAf 42.11 POC Glucometer Random Glucose 139 H Hemoglobin A1c % Calcium 9.2 Total Bilirubin 0.5 AST 24 ALT 19 Alkaline Phosphatase 69 Creatine Kinase Troponin I 0.04 Total Protein 7.2 Albumin 3.9 Urine Color Urine Appearance Urine pH Ur Specific [place] Urine Protein Urine Glucose (UA) Urine Ketones Urine Blood Urine Nitrite Urine Bilirubin Urine Urobilinogen Ur Leukocyte Esterase Urine WBC (Auto) Urine RBC (Auto) Urine Casts (Auto) U Pathogenic Cast Auto U Epithel Cells (Auto) Urine Bacteria (Auto) 11/13/19 11/14/19 11/14/19 15:54 05:48 05:48 WBC 5.7 RBC 4.34 Hgb 12.1 Hct 36.9 MCV 85.0 MCH 28.0 MCHC 32.9 RDW 14.7 Plt Count 160 MPV 8.8 Absolute Neuts (auto) 4.5 Neutrophils % 78.5 Lymphocytes % 10.2 D Monocytes % 9.3 D Eosinophils % 1.4 D Basophils % 0.6 Nucleated RBC % 0 PT with INR INR PTT (Actin FS) Sodium 139 Potassium 4.2 Chloride 108 H Carbon Dioxide 22 Anion Gap 9 BUN 19.8 H Creatinine 1.2 Est GFR (CKD-EPI)AfAm 69.11 Est GFR (CKD-EPI)NonAf 59.63 POC Glucometer Random Glucose 108 H Hemoglobin A1c % Calcium 8.9 Total Bilirubin 0.9 AST 12 L ALT 17 Alkaline Phosphatase 58 Creatine Kinase 72 Troponin I 0.07 H Total Protein 6.6 Albumin 3.7 Urine Color Red Urine Appearance Turbid Urine pH 5.0 Ur Specific [place] 1.018 Urine Protein 2+ H Urine Glucose (UA) Negative Urine Ketones Negative Urine Blood 2+ H Urine Nitrite Positive H Urine Bilirubin 2+ H Urine Urobilinogen 0.2 Ur Leukocyte Esterase 2+ H Urine WBC (Auto) 2 Urine RBC (Auto) 1651 Urine Casts (Auto) 55 U Pathogenic Cast Auto None seen U Epithel Cells (Auto) 0 Urine Bacteria (Auto) 0 11/14/19 11/14/19 08:00 11:41 WBC RBC Hgb Hct MCV MCH MCHC RDW Plt Count MPV Absolute Neuts (auto) Neutrophils % Lymphocytes % Monocytes % Eosinophils % Basophils % Nucleated RBC % PT with INR INR PTT (Actin FS) Sodium Potassium Chloride Carbon Dioxide Anion Gap BUN Creatinine Est GFR (CKD-EPI)AfAm Est GFR (CKD-EPI)NonAf POC Glucometer 154 Random Glucose Hemoglobin A1c % 6.3 Calcium Total Bilirubin AST ALT Alkaline Phosphatase Creatine Kinase Troponin I Total Protein Albumin Urine Color Urine Appearance Urine pH Ur Specific [place] Urine Protein Urine Glucose (UA) Urine Ketones Urine Blood Urine Nitrite Urine Bilirubin Urine Urobilinogen Ur Leukocyte Esterase Urine WBC (Auto) Urine RBC (Auto) Urine Casts (Auto) U Pathogenic Cast Auto U Epithel Cells (Auto) Urine Bacteria (Auto) Imaging - Results Chest X-ray: Report Reviewed Cat Scan: Report Reviewed Problem List - Problems (1) Hematuria Code(s): R31.9 - HEMATURIA, UNSPECIFIED Qualifiers: Hematuria type: gross Qualified Code(s): R31.0 - Gross hematuria (2) Postprocedural urinary retention Code(s): N99.89 - OTH POSTPROCEDURAL COMPLICATIONS AND DISORDERS OF SYS; R33.8 - OTHER RETENTION OF URINE Assessment/Plan 74 y.o. male with PMH of CAD s/p CABG, CKD s/p renal transplant in 2018 (on Prograf, Prednisone, MMF), Prostate CA s/p RT, HTN, HLD, COPD presented to the ER with c/o severe suprapubic pain/spasms and inability to urinate for 2 days s/ p recent cystoscopy and 2 wks of hematuria Urethral stone Urinary retention Hematuria UTI RADHA CKD s/p renal transplant Hx of Prostate CA s/p RT CAD s/p CABG HTN HLD -- started empirically on Ceftriaxone -- follow up Urine culture results -- plan is for repeat cystoscopy -- renal function improved with IV fluids -- pain control -- monitor cbc, temps/vitals Will follow Thank you
[2019-11-14] MEDS ORDERED: cefTRIAXone SODIUM 1 GM VIAL ONE (12:35)
[2019-11-14] MEDS ORDERED: DEXTROSE 5%-WATER - 50 ML IVPB ONE (12:36)
[2019-11-14] MEDS ORDERED: metFORMIN HCL 500 MG TABLET (FP) PO SCH (16:30)
[2019-11-14] MEDS ORDERED: LACTATED RINGERS SOLUTION 1,000 ML IV SCH ×2 (18:00→21:35)
--- NOTE | 2019-11-14 18:13 | CONSULT ---
Consult - text type - Consultation Consultation Note: cc: acute retention in renal transplant patient secondary to urethral stone seen on cystoscopy 2 days ago. hpi: patient with history of renal transplant with urethral obstruction secondary to stone. Gross hemauturia present. Patient denies fever,chills, nausea or vomiting. Patient with acute elevation of serum creatinine. PE vss;afeb abd-+ palpable bladder genitalia- nl phallus and testes rectal 2+ indurated prostate imp Acute urinary retention Acute renal injury urethral stone plan patient will need to be emergently taken to the OR for relief of his urethral obstruction/urinary retention/ and acute renal injury of transplanted kidney. patient scheduled for cystoscopy and stone removal. Patient is on eliquius. discussed x 25 minutes with medical staff and patient
[2019-11-14] MEDS ORDERED: METOPROLOL TARTRATE 5 MG/5 ML VIAL ONE ×2 (18:15→20:21)
--- NOTE | 2019-11-14 18:47 | OP ---
Operative Note - Note: Operative Date: 11/14/19 Pre-Operative Diagnosis: urethral stricture with urethral stone/acute urinary retention/acute renal injury in transplanted kidney Operation: retrograde urethrogram/cysoscopy/urethral dilation Findings: bulbous uretral stricture with stone Post-Operative Diagnosis: Same as Pre-op Surgeon: Blaine Hidalgo Anesthesia: General Drains & Tubes with Location: 22 sammarinese gutierrez catheter Operative Report Dictated: Yes
[2019-11-14] MEDS ORDERED: LABETALOL HCL 5 MG/1 ML (100MG/20 ML VIAL) IVPUSH ONE ×6 (19:00→20:45)
[2019-11-14] MEDS ORDERED: LABETALOL HCL 5 MG/1 ML (100MG/20 ML VIAL) ONE ×2 (19:03→20:45)
--- NOTE | 2019-11-14 19:29 | OP ---
DATE OF OPERATION: 11/14/2019 PREOPERATIVE DIAGNOSES: Urethral stricture with urethral stone, acute urinary retention, acute urinary injury in transplanted kidney, and a history of prostate cancer status post radiation. PROCEDURE: Retrograde urethrogram, cystoscopy, and urethral dilation. ATTENDING: Kale Pradhan MD ANESTHESIA: General. OPERATION: The patient was brought in the operating room, placed in supine position on the operating room table. The patient was given anesthesia and preoperative antibiotics. At this point, cystoscopy was attempted and stricture was noted. A wire was passed under direct vision. There was a stone present at the stricture site. At this point, because the patient is on Eliquis, it was decided to push the stone into the bladder. Once this was accomplished, urethral dilation was performed with sounds. At this point, cystoscopy was performed and the bladder was entered. There was too much blood to properly investigate the bladder at this time. The stone could not be visualized. A 22-Khmer catheter was then placed over a wire into the bladder without complications. The patient tolerated the procedure very well. The patient will require repeat cystoscopy in 6 to 8 weeks. KALE PRADHAN M.D. /[id number]
[2019-11-14] MEDS ORDERED: hydrALAZINE HCL 20 MG/ML VIAL IVPUSH ONE (20:15)
[2019-11-14] MEDS ORDERED: METOPROLOL TARTRATE 5 MG/5 ML VIAL IVPUSH ONE ×3 (20:15→21:43)
[2019-11-14] MEDS ORDERED: hydrALAZINE HCL 20 MG/ML VIAL ONE (20:18)
[2019-11-14] MEDS ORDERED: FAMOTIDINE 20 MG/50 ML IVPB 20 MG/50 ML MG IVPB ONE (20:44)
[2019-11-14] MEDS ORDERED: FAMOTIDINE 20 MG PREMIXED IVPB IVPB ONE (20:45)
--- NOTE | 2019-11-14 21:29 | PN ---
Progress Note (short form) - Note Progress Note: 74M h/o CAD s/p CABG, COPD, HTN, Aflutter s/p ablation, CRI s/p renal transplant now POD#0 for cystoscopy under GA with LMA for urethral stone and stricture. Intraop no complications. Intraop vial signs stable with no hypo/ hypertensive episodes . Postop patient hypertensive and complaining of "indigestion" and diaphoresis. Pt. denies chest pain or shortness of breath. Postop HTN treated with labetalol, metoprolol and hydralazine. BP max 199/90 with HR of 90. After total of 35mg of labelatol, 5mg of metoprol and 10mg of hydralazine BP: 146/82 and HR 62. Pt. also given 20mg of pepcid for possible GERD. VS: 153/68 HR: 61 RR: 14 O2: 100% on 2L NC PE: Gen: NAD, AO*3 CV: RRR, scar from sternotomy Resp: CTAB Abd: Soft, NT/ND Uro: Farfan draining well with minimal hematuria. A/P: 74 M with h/o CAD and chronic angina c/o "indigestion" and diaphoresis postop concerning for ACS likely a result of demand ischemia. Tachycardia and HTN improved with metoprolol, hydralazine and labetolol. After intervention pt denies CP/SOB/N/V/diaphoresis. The EKG was unchanged when compared to preop EKG. (NSR with sinus arrhythmia, ST and Marked T wave abnormality and prolonged QT). I discussed case with Dr. Anselmo Tsai (cardiology) and Dr. Montalvo. We will continue to monitor patient on telemetry and f/u cardiac enzymes. Will defer further management to primary team.
[2019-11-14] MEDS ORDERED: ATORVASTATIN CA 40 MG TABLET (FP) PO SCH (22:00)
[2019-11-14] MEDS ORDERED: TACROLIMUS ANHYDROUS 1 MG, TACROLIMUS ANHYDROUS 0.5 MG PO SCH (22:00)
[2019-11-14] MEDS: APIXABAN 5 MG TABLET PO SCH (22:46)
[2019-11-14] MEDS: MYCOPHENOLATE MOFETIL 500 MG TABLET PO SCH (22:46)
[2019-11-14] MEDS: ATORVASTATIN CA 40 MG TABLET (FP) PO SCH (22:46)
[2019-11-14] MEDS: TACROLIMUS ANHYDROUS 1 MG, TACROLIMUS ANHYDROUS 0.5 MG PO SCH (22:46)
[2019-11-14] MEDS ORDERED: SODIUM CHLORIDE 1,000 ML IV SCH (23:15)
[2019-11-15] MEDS: metFORMIN HCL 500 MG TABLET (FP) PO SCH ×2 (06:10→17:11)
[2019-11-15] MEDS: TACROLIMUS ANHYDROUS 1 MG CAPSULE PO SCH (06:10)
[2019-11-15 06:37] LABS: BASO % 0.1 % (0-2.0); HEMATOCRIT 36.6 % (35.4-49); HEMOGLOBIN 11.9 GM/dL (11.7-16.9); LYMPH % 1.8 % (8-40); MCH 28.1 pg (25.7-33.7); MCHC 32.6 g/dl (32.0-35.9); MEAN PLT VOLUME 9.3 fl (7.5-11.1); NEUT % 96.1 % (42.8-82.8); PLATELET COUNT 162 K/MM3 (134-434); RBC 4.25 M/mm3 (4.00-5.60); RDW 14.7 % (11.9-15.9); WHITE BLOOD COUNT 10.3 K/mm3 (4.0-10.0)
[2019-11-15 06:56] LABS: ALBUMIN 3.3 g/dl (3.4-5.0); BILIRUBIN,TOTAL 0.4 mg/dL (0.2-1); BLOOD UREA NITROGEN 18.3 mg/dL (7-18); CALCIUM 7.9 mg/dL (8.5-10.1); CREATININE 1.2 mg/dL (0.55-1.3); POTASSIUM 4.8 mmol/L (3.5-5.1)
[2019-11-15] MEDS ORDERED: DEXTROSE 5%-WATER - 50 ML IVPB ONE (08:49)
[2019-11-15] MEDS ORDERED: cefTRIAXone SODIUM 1 GM VIAL ONE (08:49)
[2019-11-15] MEDS: predniSONE 5 MG TABLET (UD) PO SCH (09:01)
[2019-11-15] MEDS: CEFTRIAXONE 1 GM in DEXTROSE 5%-WATER - 50 ML IVPB SCH (09:02)
[2019-11-15] MEDS: APIXABAN 5 MG TABLET PO SCH (09:02)
[2019-11-15] MEDS: PANTOPRAZOLE SODIUM 40 MG VIAL IVPUSH SCH (09:02)
[2019-11-15] MEDS: ASPIRIN COATED 81 MG TABLET.EC PO SCH (09:02)
[2019-11-15] MEDS: MYCOPHENOLATE MOFETIL 500 MG TABLET PO SCH ×2 (09:04→21:19)
[2019-11-15] MEDS: CHOLECALCIFEROL (VIT D3) 1,000 UNIT (25 MCG) TABLET PO SCH (09:06)
--- NOTE | 2019-11-15 09:59 | EKG ---
Test Reason : Blood Pressure : / mmHG Vent. Rate : 071 BPM Atrial Rate : 089 BPM P-R Int : 176 ms QRS Dur : 090 ms QT Int : 466 ms P-R-T Axes : 107 054 220 degrees QTc Int : 506 ms SINUS RHYTHM WITH MARKED SINUS ARRHYTHMIA PROLONGED QT ABNORMAL ECG WHEN COMPARED WITH ECG OF 14-NOV-2019 10:19, ST NOW DEPRESSED IN ANTERIOR LEADS Confirmed by Danii Chavarria ([id number]) on 11/15/2019 9:59:24 AM Referred By: LARISSA Confirmed By:Danii Chavarria
[2019-11-15] MEDS ORDERED: DOFETILIDE 0.125 MG CAPSULE PO SCH (10:00)
--- NOTE | 2019-11-15 10:09 | PN ---
Progress Note, Physician Chief Complaint: pt exsperianced episode v tach prior to procedure card cleared to go gu unable to retreive urethral stone due to blood not able to visuilize stone ? may do it as out pt due to ? echemic event pt bp elivated and became diaphoratic tx w meds by anetheologist placed on tely pt will stay ? 2 more day trop level and ekg ? d/c iv so not to overload cr nl now ? d/c morphine if not needed - Current Medication List Current Medications: Active Medications Apixaban (Eliquis -) 5 mg PO BID [facility] Last Admin: 11/15/19 09:02 Dose: 5 mg Aspirin (Ecotrin -) 81 mg PO DAILY [facility] Last Admin: 11/15/19 09:02 Dose: 81 mg Atorvastatin Calcium (Lipitor -) 40 mg PO HS [facility] Last Admin: 11/14/19 22:46 Dose: 40 mg Cholecalciferol (Vitamin D3 -) 1,000 unit PO DAILY [facility] Last Admin: 11/15/19 09:06 Dose: 1,000 unit Dofetilide (Tikosyn (Restricted To Cardiology) -) 0.125 mg PO DAILY [facility] Fentanyl (Sublimaze Injection -) 50 mcg IVPUSH [id number] PRN PRN Reason: PAIN-PACU ORDER X 4 DOSES ONLY Ceftriaxone Sodium 1 gm/ (Dextrose) 50 mls @ 100 mls/hr IVPB DAILY [facility]; Protocol Last Admin: 11/15/19 09:02 Dose: 100 mls/hr Sodium Chloride (Normal Saline -) 1,000 mls @ 75 mls/hr IV ASDIR [facility] Last Admin: 11/14/19 23:20 Dose: 75 mls/hr Metformin HCl (Glucophage -) 500 mg PO BID@0700,1630 [facility] Last Admin: 11/15/19 06:10 Dose: 500 mg Metoprolol Succinate (Toprol Xl -) 50 mg PO DAILY [facility] Last Admin: 11/15/19 09:01 Dose: 50 mg Morphine Sulfate (Morphine Sulfate) 2 mg IVPUSH Q6H PRN PRN Reason: PAIN LEVEL 6-10 Mycophenolate Mofetil (Cellcept -) 500 mg PO BID [facility] Last Admin: 11/15/19 09:04 Dose: 500 mg Pantoprazole Sodium (Protonix Iv) 40 mg IVPUSH DAILY [facility] Last Admin: 11/15/19 09:02 Dose: 40 mg Prednisone (Deltasone -) 5 mg PO DAILY [facility] Last Admin: 11/15/19 09:01 Dose: 5 mg Tacrolimus (Prograf) 1 mg PO AM [facility] Last Admin: 11/15/19 06:10 Dose: 1 mg Tacrolimus 1 mg/ Tacrolimus 0. (5 mg) 1.5 mg PO 2200 [facility] Last Admin: 11/14/19 22:46 Dose: 1.5 mg - Objective Vital Signs: Vital Signs Temperature 98.1 F 11/15/19 06:00 Pulse Rate 62 11/15/19 06:00 Respiratory Rate 18 11/15/19 06:00 Blood Pressure 140/70 11/15/19 06:00 O2 Sat by Pulse Oximetry (%) 98 11/14/19 22:15 Constitutional: Yes: No Distress Eyes: Yes: WNL HENT: Yes: WNL Neck: Yes: WNL Cardiovascular: Yes: Other (prolonged qt ? sine rm now vss) Respiratory: Yes: WNL Gastrointestinal: Yes: WNL ...Rectal Exam: Yes: Deferred Genitourinary: Yes: Farfan Present Breast(s): Yes: WNL Musculoskeletal: Yes: WNL Extremities: Yes: WNL Edema: No Peripheral Pulses WNL: Yes Integumentary: Yes: WNL Neurological: Yes: WNL, Unresponsive Psychiatric: Yes: WNL Labs: CBC, BMP 11/15/19 05:20 11/15/19 05:20 INR, PTT INR 1.21 (0.83-1.09) H 11/13/19 15:03 Assessment/Plan ekg daily trop level again d/c iv ? d/c in am p/t eval
--- NOTE | 2019-11-15 10:10 | EKG ---
Test Reason : Blood Pressure : / mmHG Vent. Rate : 063 BPM Atrial Rate : 063 BPM P-R Int : 174 ms QRS Dur : 092 ms QT Int : 464 ms P-R-T Axes : 030 050 203 degrees QTc Int : 474 ms SINUS RHYTHM WITH MARKED SINUS ARRHYTHMIA MINIMAL VOLTAGE CRITERIA FOR LVH, MAY BE NORMAL VARIANT PROLONGED QT ABNORMAL ECG WHEN COMPARED WITH ECG OF 13-NOV-2019 14:59, NO SIGNIFICANT CHANGE WAS FOUND Confirmed by Danii Chavarria ([id number]) on 11/15/2019 10:09:33 AM Referred By: Karen DENT Confirmed By:Danii Chavarria
--- NOTE | 2019-11-15 10:23 | EKG ---
Test Reason : Blood Pressure : / mmHG Vent. Rate : 061 BPM Atrial Rate : 061 BPM P-R Int : 188 ms QRS Dur : 090 ms QT Int : 476 ms P-R-T Axes : 075 061 213 degrees QTc Int : 479 ms SINUS RHYTHM WITH MARKED SINUS ARRHYTHMIA LEFT VENTRICULAR HYPERTROPHY WITH REPOLARIZATION ABNORMALITY ABNORMAL ECG WHEN COMPARED WITH ECG OF 13-NOV-2019 14:58, PREMATURE ATRIAL COMPLEXES ARE NO LONGER PRESENT Confirmed by Danii Chavarria ([id number]) on 11/15/2019 10:23:17 AM Referred By: Confirmed By:Danii Chavarria
[2019-11-15 10:41] LABS: ANISOCYTOSIS 0; MACROCYTOSIS 0; PLATELET ESTIMATE NORMAL
--- NOTE | 2019-11-15 12:20 | ECHO ---
Name: ZAYRA OSULLIVAN Exam:Adult Echocardiogram Study Date: 11/15/2019 11:26 AM Age: 74 yrs Reason For Study: Ischemic Height: 68 in Weight: 205 lb BSA: 2.1 m2 MMode/2D Measurements & Calculations IVSd: 1.4 cm Ao root diam: 2.5 cm LVIDd: 4.2 cm LA dimension: 4.4 cm LVIDs: 2.8 cm ACS: 1.6 cm LVPWd: 1.4 cm EDV(Teich): 77.3 ml LVOT diam: 1.8 cm ESV(Teich): 30.2 ml Doppler Measurements & Calculations MV E max harris: 42.4 cm/sec Ao V2 max: 135.7 cm/sec MV A max harris: 109.1 cm/sec Ao max P.4 mmHg MV E/A: 0.39 Ao V2 mean: 84.1 cm/sec MV dec time: 0.10 sec Ao mean P.2 mmHg Ao V2 VTI: 21.9 cm CHELSI(I,D): 2.0 cm2 CHELSI(V,D): 1.6 cm2 LV V1 max P.8 mmHg SV(LVOT): 44.4 ml LV V1 mean P.4 mmHg LV V1 max: 83.4 cm/sec LV V1 mean: 54.2 cm/sec LV V1 VTI: 16.8 cm TR max harris: 233.5 cm/sec PA V2 max: 55.3 cm/sec TR max P.3 mmHg PA max P.2 mmHg Med Peak E' Harris: 10.9 cm/sec Med E/e': 3.9 Lat Peak E' Harris: 8.6 cm/sec Lat E/e': 4.9 Procedure Study Quality: Technically suboptimal. The study was technically limited with all images being subopt imal in quality. Left Ventricle The left ventricle is grossly normal size. Left ventricular systolic function is grossly normal. Unab le to asseess wall motion. Right Ventricle The right ventricle is not well visualized. Atria Normal left and right atrial size and function. Mitral Valve The mitral valve is not well visualized. Tricuspid Valve The tricuspid valve is not well visualized. Aortic Valve There is mild to moderate aortic sclerosis.;. Pulmonic Valve The pulmonic valve is not well visualized. Great Vessels The aortic root is not well visualized. Pericardium/Pleura There is no pericardial effusion. Interpretation Summary Limited and suboptimal study Grossly normal left ventricular systolic function and EF, mild LVH. Unable to evaluate segmental wall motion Right heart not well seen Mild calcified aortic valve. Danii Chavarria 11/15/2019 12:20 PM
--- NOTE | 2019-11-15 12:42 | EKG ---
Test Reason : Blood Pressure : / mmHG Vent. Rate : 060 BPM Atrial Rate : 060 BPM P-R Int : 180 ms QRS Dur : 092 ms QT Int : 478 ms P-R-T Axes : 068 066 227 degrees QTc Int : 478 ms NORMAL SINUS RHYTHM VOLTAGE CRITERIA FOR LEFT VENTRICULAR HYPERTROPHY , repolarization abormality PROLONGED QT ABNORMAL ECG WHEN COMPARED WITH ECG OF 14-NOV-2019 21:00, NO SIGNIFICANT CHANGE WAS FOUND Confirmed by Danii Chavarria ([id number]) on 11/15/2019 12:41:59 PM Referred By: ANNABELLE LEON Confirmed By:Danii Chavarria
--- NOTE | 2019-11-15 14:16 | PN ---
Progress Note, Physician History of Present Illness: stable no new issues foleys draining well - Current Medication List Current Medications: Active Medications Apixaban (Eliquis -) 5 mg PO BID [facility] Last Admin: 11/15/19 09:02 Dose: 5 mg Aspirin (Ecotrin -) 81 mg PO DAILY [facility] Last Admin: 11/15/19 09:02 Dose: 81 mg Atorvastatin Calcium (Lipitor -) 40 mg PO HS [facility] Last Admin: 11/14/19 22:46 Dose: 40 mg Cholecalciferol (Vitamin D3 -) 1,000 unit PO DAILY [facility] Last Admin: 11/15/19 09:06 Dose: 1,000 unit Dofetilide (Tikosyn (Restricted To Cardiology) -) 0.125 mg PO DAILY [facility] Fentanyl (Sublimaze Injection -) 50 mcg IVPUSH [id number] PRN PRN Reason: PAIN-PACU ORDER X 4 DOSES ONLY Ceftriaxone Sodium 1 gm/ (Dextrose) 50 mls @ 100 mls/hr IVPB DAILY [facility]; Protocol Last Admin: 11/15/19 09:02 Dose: 100 mls/hr Metformin HCl (Glucophage -) 500 mg PO BID@0700,1630 [facility] Last Admin: 11/15/19 06:10 Dose: 500 mg Metoprolol Succinate (Toprol Xl -) 50 mg PO DAILY [facility] Last Admin: 11/15/19 09:01 Dose: 50 mg Morphine Sulfate (Morphine Sulfate) 2 mg IVPUSH Q6H PRN PRN Reason: PAIN LEVEL 6-10 Mycophenolate Mofetil (Cellcept -) 500 mg PO BID [facility] Last Admin: 11/15/19 09:04 Dose: 500 mg Pantoprazole Sodium (Protonix Iv) 40 mg IVPUSH DAILY [facility] Last Admin: 11/15/19 09:02 Dose: 40 mg Prednisone (Deltasone -) 5 mg PO DAILY [facility] Last Admin: 11/15/19 09:01 Dose: 5 mg Tacrolimus (Prograf) 1 mg PO AM [facility] Last Admin: 11/15/19 06:10 Dose: 1 mg Tacrolimus 1 mg/ Tacrolimus 0. (5 mg) 1.5 mg PO 2200 [facility] Last Admin: 11/14/19 22:46 Dose: 1.5 mg - Objective Vital Signs: Vital Signs Temperature 97.9 F 11/15/19 10:00 Pulse Rate 71 11/15/19 10:00 Respiratory Rate 18 11/15/19 10:00 Blood Pressure 128/73 11/15/19 10:00 O2 Sat by Pulse Oximetry (%) 98 11/15/19 09:00 Constitutional: Yes: No Distress, Calm Cardiovascular: Yes: S1, S2 Respiratory: Yes: Regular, CTA Bilaterally Gastrointestinal: Yes: Normal Bowel Sounds, Soft Musculoskeletal: Yes: WNL Extremities: Yes: Other Neurological: Yes: Alert, Oriented Psychiatric: Yes: Alert, Oriented Labs: CBC, BMP 11/15/19 05:20 11/15/19 05:20 INR, PTT INR 1.21 (0.83-1.09) H 11/13/19 15:03 Assessment/Plan Problem List - Problems (1) Hematuria Code(s): R31.9 - HEMATURIA, UNSPECIFIED Qualifiers: Hematuria type: gross Qualified Code(s): R31.0 - Gross hematuria (2) Postprocedural urinary retention Code(s): N99.89 - OTH POSTPROCEDURAL COMPLICATIONS AND DISORDERS OF SYS; R33.8 - OTHER RETENTION OF URINE Assessment/Plan 74 y.o. male with PMH of CAD s/p CABG, CKD s/p renal transplant in 2018 (on Prograf, Prednisone, MMF), Prostate CA s/p RT, HTN, HLD, COPD presented to the ER with c/o severe suprapubic pain/spasms and inability to urinate for 2 days s/ p recent cystoscopy and 2 wks of hematuria Urethral stone Urinary retention Hematuria UTI RADHA CKD s/p renal transplant Hx of Prostate CA s/p RT CAD s/p CABG HTN HLD plan continue current mgmt on discharge can stop abx
--- NOTE | 2019-11-15 15:55 | PN ---
Progress Note, Physician History of Present Illness: Pt seen and examined at bedside. He is awake and alert. He denies shortness of breath. - Current Medication List Current Medications: Active Medications Apixaban (Eliquis -) 5 mg PO BID [facility] Last Admin: 11/15/19 09:02 Dose: 5 mg Aspirin (Ecotrin -) 81 mg PO DAILY [facility] Last Admin: 11/15/19 09:02 Dose: 81 mg Atorvastatin Calcium (Lipitor -) 40 mg PO HS [facility] Last Admin: 11/14/19 22:46 Dose: 40 mg Cholecalciferol (Vitamin D3 -) 1,000 unit PO DAILY [facility] Last Admin: 11/15/19 09:06 Dose: 1,000 unit Dofetilide (Tikosyn (Restricted To Cardiology) -) 0.125 mg PO DAILY [facility] Fentanyl (Sublimaze Injection -) 50 mcg IVPUSH [id number] PRN PRN Reason: PAIN-PACU ORDER X 4 DOSES ONLY Ceftriaxone Sodium 1 gm/ (Dextrose) 50 mls @ 100 mls/hr IVPB DAILY [facility]; Protocol Last Admin: 11/15/19 09:02 Dose: 100 mls/hr Metformin HCl (Glucophage -) 500 mg PO BID@0700,1630 [facility] Last Admin: 11/15/19 06:10 Dose: 500 mg Metoprolol Succinate (Toprol Xl -) 50 mg PO DAILY [facility] Last Admin: 11/15/19 09:01 Dose: 50 mg Morphine Sulfate (Morphine Sulfate) 2 mg IVPUSH Q6H PRN PRN Reason: PAIN LEVEL 6-10 Mycophenolate Mofetil (Cellcept -) 500 mg PO BID [facility] Last Admin: 11/15/19 09:04 Dose: 500 mg Pantoprazole Sodium (Protonix Iv) 40 mg IVPUSH DAILY [facility] Last Admin: 11/15/19 09:02 Dose: 40 mg Prednisone (Deltasone -) 5 mg PO DAILY [facility] Last Admin: 11/15/19 09:01 Dose: 5 mg Tacrolimus (Prograf) 1 mg PO AM [facility] Last Admin: 11/15/19 06:10 Dose: 1 mg Tacrolimus 1 mg/ Tacrolimus 0. (5 mg) 1.5 mg PO 2200 [facility] Last Admin: 11/14/19 22:46 Dose: 1.5 mg - Objective Vital Signs: Vital Signs Temperature 98.2 F 11/15/19 14:15 Pulse Rate 73 11/15/19 14:15 Respiratory Rate 18 11/15/19 14:15 Blood Pressure 136/72 11/15/19 14:15 O2 Sat by Pulse Oximetry (%) 98 11/15/19 09:00 Constitutional: Yes: Calm Eyes: Yes: Conjunctiva Clear Cardiovascular: Yes: WNL Respiratory: Yes: WNL Gastrointestinal: Yes: Soft Genitourinary: Yes: Farfan Present Musculoskeletal: Yes: WNL Edema: No Integumentary: Yes: WNL Neurological: Yes: Oriented Psychiatric: Yes: Oriented Labs: CBC, BMP 11/15/19 05:20 11/15/19 05:20 INR, PTT INR 1.21 (0.83-1.09) H 11/13/19 15:03 Assessment/Plan Current Medications Generic Name Dose Route Start Last Admin Trade Name Freq PRN Reason Stop Dose Admin Apixaban 5 mg 11/14/19 22:00 11/15/19 09:02 Eliquis - PO 5 mg BID [facility] Administration Aspirin 81 mg 11/15/19 10:00 11/15/19 09:02 Ecotrin - PO 81 mg DAILY [facility] Administration Atorvastatin Calcium 40 mg 11/14/19 22:00 11/14/19 22:46 Lipitor - PO 40 mg HS [facility] Administration Cholecalciferol 1,000 unit 11/15/19 10:00 11/15/19 09:06 Vitamin D3 - PO 1,000 unit DAILY [facility] Administration Dofetilide 0.125 mg 11/15/19 10:00 Tikosyn (Restricted To Cardiology) - PO DAILY [facility] Fentanyl 50 mcg 11/14/19 21:35 Sublimaze Injection - IVPUSH [id number] PRN PAIN-PACU ORDER X 4 DOSES ONLY Ceftriaxone Sodium 1 gm/ 50 mls @ 100 mls/hr 11/15/19 10:00 11/15/19 09:02 Dextrose IVPB 100 mls/hr DAILY [facility] Administration Protocol Metformin HCl 500 mg 11/15/19 07:00 11/15/19 06:10 Glucophage - PO 500 mg BID@0700,1630 [facility] Administration Metoprolol Succinate 50 mg 11/15/19 10:00 11/15/19 09:01 Toprol Xl - PO 50 mg DAILY [facility] Administration Morphine Sulfate 2 mg 02/16/20 21:35 Morphine Sulfate IVPUSH Q6H PRN PAIN LEVEL 6-10 Mycophenolate Mofetil 500 mg 11/14/19 22:00 11/15/19 09:04 Cellcept - PO 500 mg BID [facility] Administration Pantoprazole Sodium 40 mg 11/15/19 10:00 11/15/19 09:02 Protonix Iv IVPUSH 40 mg DAILY [facility] Administration Prednisone 5 mg 11/15/19 10:00 11/15/19 09:01 Deltasone - PO 5 mg DAILY [facility] Administration Tacrolimus 1 mg 11/15/19 07:00 11/15/19 06:10 Prograf PO 1 mg AM [facility] Administration Tacrolimus 1 mg/ Tacrolimus 0. 1.5 mg 11/14/19 22:00 11/14/19 22:46 5 mg PO 1.5 mg 2200 [facility] Administration Coverage for Dr Ramirez Impression RADHA urinary retention kidney transplant CAD s/p CABG CKD h/o Prostate CA s/p radiation hematuria renal calculus Plan - renal function improved - repeat labs in am - urology input appreciated - check prograf level - follow cultures
[2019-11-15] MEDS ORDERED: PT OWN MED DRAWER 7, Y5N ONE (21:05)
[2019-11-15] MEDS: ATORVASTATIN CA 40 MG TABLET (FP) PO SCH (21:17)
[2019-11-15] MEDS: TACROLIMUS ANHYDROUS 1 MG, TACROLIMUS ANHYDROUS 0.5 MG PO SCH (21:18)
[2019-11-15] MEDS ORDERED: TACROLIMUS 0.5 MG CAPSULE PO SCH (22:00)
[2019-11-15] MEDS: APIXABAN 2.5 MG TABLET PO SCH (22:07)
[2019-11-16] MEDS: TACROLIMUS ANHYDROUS 1 MG CAPSULE PO SCH (06:25)
[2019-11-16] MEDS: metFORMIN HCL 500 MG TABLET (FP) PO SCH ×2 (06:25→15:55)
[2019-11-16 06:58] LABS: HEMATOCRIT 34.9 % (35.4-49); HEMOGLOBIN 11.4 GM/dL (11.7-16.9); MCHC 32.6 g/dl (32.0-35.9); MEAN CELL VOLUME 85.7 fl (80-96); MEAN PLT VOLUME 8.8 fl (7.5-11.1); PLATELET COUNT 143 K/MM3 (134-434); RBC 4.08 M/mm3 (4.00-5.60); RDW 14.7 % (11.9-15.9); WHITE BLOOD COUNT 7.3 K/mm3 (4.0-10.0)
[2019-11-16 07:10] LABS: BLOOD UREA NITROGEN 20.6 mg/dL (7-18); CALCIUM 8.4 mg/dL (8.5-10.1); CREATININE 1.1 mg/dL (0.55-1.3); POTASSIUM 4.4 mmol/L (3.5-5.1)
--- NOTE | 2019-11-16 08:10 | CONSULT ---
Consult - text type - Consultation Consultation Note: cc: acute urinary retention with acute kidney injury s/p gutierrez placement hpi: patient much improved with clearing urine with gutierrez draining well. Patient is afebrile, tolerating a diet, and comfortable. PE vss; afeb abd-soft, non-tender; no palpable bladder genitalia-gutierrez draining blood tinged urine imp ESRD s/p transplant urethral stone and stricture s/p gutierrez placement plan urologically cleared for d/c home with gutierrez when medically cleared
[2019-11-16] MEDS ORDERED: DEXTROSE 5%-WATER - 50 ML IVPB ONE ×2 (08:23→08:24)
[2019-11-16] MEDS ORDERED: cefTRIAXone SODIUM 1 GM VIAL ONE ×2 (08:23→08:24)
[2019-11-16] MEDS ORDERED: PT OWN MED DRAWER 7, Y5N ONE ×2 (08:23→09:25)
[2019-11-16] MEDS: CEFTRIAXONE 1 GM in DEXTROSE 5%-WATER - 50 ML IVPB SCH (09:22)
[2019-11-16] MEDS: APIXABAN 2.5 MG TABLET PO SCH (09:22)
[2019-11-16] MEDS: ASPIRIN COATED 81 MG TABLET.EC PO SCH (09:23)
[2019-11-16] MEDS: predniSONE 5 MG TABLET (UD) PO SCH (09:23)
[2019-11-16] MEDS: PANTOPRAZOLE SODIUM 40 MG VIAL IVPUSH SCH (09:23)
[2019-11-16] MEDS: CHOLECALCIFEROL (VIT D3) 1,000 UNIT (25 MCG) TABLET PO SCH (09:24)
[2019-11-16] MEDS: MYCOPHENOLATE MOFETIL 500 MG TABLET PO SCH (09:26)
--- NOTE | 2019-11-16 10:10 | DS ---
Physical Examination Vital Signs: Vital Signs Temperature 98 F 11/16/19 09:17 Pulse Rate 70 11/16/19 09:17 Respiratory Rate 19 11/16/19 09:17 Blood Pressure 127/74 11/16/19 09:17 O2 Sat by Pulse Oximetry (%) 97 11/16/19 09:00 Constitutional: Yes: Well Nourished Eyes: Yes: WNL HENT: Yes: WNL Neck: Yes: WNL Cardiovascular: Yes: Regular Rate and Rhythm, S4, Other (now sr no afibb) Gastrointestinal: Yes: WNL ...Rectal Exam: Yes: Deferred Renal/: Yes: Farfan Present Breast(s): Yes: WNL Musculoskeletal: Yes: WNL Extremities: Yes: WNL Edema: No Peripheral Pulses WNL: Yes Integumentary: Yes: WNL Neurological: Yes: WNL ...Motor Strength: WNL Psychiatric: Yes: WNL Labs: CBC, BMP 11/16/19 05:12 11/16/19 05:12 Discharge Summary Problems reviewed: Yes Reason For Visit: URINARY PROBLEM/KIDNEY STONE Current Active Problems Hematuria (Acute) Postprocedural urinary retention (Acute) Condition: Fair - Instructions Diet, Activity, Other Instructions: renal diet py aweare cont all meds as is at home no new meds appt w gu py knows appt w me monda 1 wk from now 100 pm made w my office allreadey keep foly in no atbx Referrals: Slim Montalvo MD [Primary Care Provider] - - Home Medications Comprehensive Discharge Medication List: Ambulatory Orders Apixaban [Eliquis] 5 mg PO BID 11/13/19 Apixaban [Eliquis] 5 mg PO BID 11/13/19 Aspirin 81 mg PO DAILY 11/13/19 Atorvastatin Ca [Lipitor] 40 mg PO HS 11/13/19 Cholecalciferol (Vitamin D3) [Vitamin D3 -] 1,000 unit PO DAILY 11/13/19 Dofetilide 125 mg PO DAILY 11/13/19 Magnesium Oxide 400 mg PO BID 11/13/19 Metoprolol Succinate 50 mg PO DAILY 11/13/19 Mycophenolate Mofetil [Cellcept -] 500 mg PO BID 11/13/19 Tacrolimus 2.5 mg PO DAILY 11/13/19 Vitamin B Complex 1 each PO DAILY 11/13/19 predniSONE [Deltasone -] 5 mg PO DAILY 11/13/19
--- NOTE | 2019-11-16 13:08 | PN ---
Progress Note, Physician Chief Complaint: The patient is seen and examined in his room. Denies any chest pain or shortness of breath. The Farfan catheter is draining clear urine. No urinary complaints. History of Present Illness: This is a 74 y/o male with ESRD, s/p Renal transplant admitted with acute renal colic and hematuriua. He is clinically much better. Most likely the patient passed a renal calculus. Had worsening of his baseline renal functions. (RADHA), but the renal functions samir improving towards baseline. - Current Medication List Current Medications: Active Medications Apixaban (Eliquis -) 5 mg PO BID [facility] Last Admin: 11/16/19 09:22 Dose: 5 mg Aspirin (Ecotrin -) 81 mg PO DAILY [facility] Last Admin: 11/16/19 09:23 Dose: 81 mg Atorvastatin Calcium (Lipitor -) 40 mg PO HS [facility] Last Admin: 11/15/19 21:17 Dose: 40 mg Dofetilide (Tikosyn (Restricted To Cardiology) -) 0.125 mg PO DAILY [facility] Fentanyl (Sublimaze Injection -) 50 mcg IVPUSH [id number] PRN PRN Reason: PAIN-PACU ORDER X 4 DOSES ONLY Metformin HCl (Glucophage -) 500 mg PO BID@0700,1630 [facility] Last Admin: 11/16/19 06:25 Dose: 500 mg Metoprolol Succinate (Toprol Xl -) 50 mg PO DAILY [facility] Last Admin: 11/16/19 09:23 Dose: 50 mg Mycophenolate Mofetil (Cellcept -) 500 mg PO BID [facility] Last Admin: 11/16/19 09:26 Dose: 500 mg Pantoprazole Sodium (Protonix Iv) 40 mg IVPUSH DAILY [facility] Last Admin: 11/16/19 09:23 Dose: 40 mg Prednisone (Deltasone -) 5 mg PO DAILY [facility] Last Admin: 11/16/19 09:23 Dose: 5 mg Tacrolimus (Prograf) 1 mg PO AM [facility] Last Admin: 11/16/19 06:25 Dose: 1 mg Tacrolimus 1 mg/ Tacrolimus 0. (5 mg) 1.5 mg PO 2200 [facility] Last Admin: 11/15/19 21:18 Dose: 1.5 mg - Objective Vital Signs: Vital Signs Temperature 98 F 11/16/19 09:17 Pulse Rate 70 11/16/19 09:17 Respiratory Rate 19 11/16/19 09:17 Blood Pressure 127/74 11/16/19 09:17 O2 Sat by Pulse Oximetry (%) 97 11/16/19 09:00 Constitutional: Yes: Well Nourished, Calm Eyes: Yes: Conjunctiva Clear HENT: Yes: Normocephalic Neck: Yes: Thyromegaly Cardiovascular: Yes: Regular Rate and Rhythm, S1, S2 Respiratory: Yes: CTA Bilaterally, Diminished Gastrointestinal: Yes: Normal Bowel Sounds, Soft Genitourinary: Yes: Farfan Present (clear urine) Musculoskeletal: No: Joint Stiffness Extremities: Yes: WNL Edema: No Neurological: Yes: Alert, Oriented Psychiatric: Yes: Oriented Labs: CBC, BMP 11/16/19 05:12 11/16/19 05:12 INR, PTT INR 1.21 (0.83-1.09) H 11/13/19 15:03 Problem List - Problems (1) ESRD (end stage renal disease) Code(s): N18.6 - END STAGE RENAL DISEASE (2) Renal transplant recipient Code(s): Z94.0 - KIDNEY TRANSPLANT STATUS (3) Renal colic Code(s): N23 - UNSPECIFIED RENAL COLIC (4) Hematuria Code(s): R31.9 - HEMATURIA, UNSPECIFIED Qualifiers: Hematuria type: gross Qualified Code(s): R31.0 - Gross hematuria (5) Postprocedural urinary retention Code(s): N99.89 - OTH POSTPROCEDURAL COMPLICATIONS AND DISORDERS OF SYS; R33.8 - OTHER RETENTION OF URINE Assessment/Plan This is a 74 y/o male with h/o ESRD, s/p renal transplant. Admitted with renal colic and the patient passed a renal calculus. The patient was in RADHA, and is now the azotemia has improved to close to his baseline. Maintains good urine output. The patient is for possible DC today. Will follow up with . Will possibly require Stone studies as to the etiology of his stone formation. Shall follow up as outpatient. Julia Peres MD
--- NOTE | 2019-11-16 13:40 | PN ---
Progress Note, Physician History of Present Illness: stable no new issues - Current Medication List Current Medications: Active Medications Apixaban (Eliquis -) 5 mg PO BID [facility] Last Admin: 11/16/19 09:22 Dose: 5 mg Aspirin (Ecotrin -) 81 mg PO DAILY [facility] Last Admin: 11/16/19 09:23 Dose: 81 mg Atorvastatin Calcium (Lipitor -) 40 mg PO HS [facility] Last Admin: 11/15/19 21:17 Dose: 40 mg Dofetilide (Tikosyn (Restricted To Cardiology) -) 0.125 mg PO DAILY [facility] Fentanyl (Sublimaze Injection -) 50 mcg IVPUSH [id number] PRN PRN Reason: PAIN-PACU ORDER X 4 DOSES ONLY Metformin HCl (Glucophage -) 500 mg PO BID@0700,1630 [facility] Last Admin: 11/16/19 06:25 Dose: 500 mg Metoprolol Succinate (Toprol Xl -) 50 mg PO DAILY [facility] Last Admin: 11/16/19 09:23 Dose: 50 mg Mycophenolate Mofetil (Cellcept -) 500 mg PO BID [facility] Last Admin: 11/16/19 09:26 Dose: 500 mg Pantoprazole Sodium (Protonix Iv) 40 mg IVPUSH DAILY [facility] Last Admin: 11/16/19 09:23 Dose: 40 mg Prednisone (Deltasone -) 5 mg PO DAILY [facility] Last Admin: 11/16/19 09:23 Dose: 5 mg Tacrolimus (Prograf) 1 mg PO AM [facility] Last Admin: 11/16/19 06:25 Dose: 1 mg Tacrolimus 1 mg/ Tacrolimus 0. (5 mg) 1.5 mg PO 2200 [facility] Last Admin: 11/15/19 21:18 Dose: 1.5 mg - Objective Vital Signs: Vital Signs Temperature 98 F 11/16/19 09:17 Pulse Rate 70 11/16/19 09:17 Respiratory Rate 19 11/16/19 09:17 Blood Pressure 127/74 11/16/19 09:17 O2 Sat by Pulse Oximetry (%) 97 11/16/19 09:00 Constitutional: Yes: No Distress, Calm Cardiovascular: Yes: S1, S2 Respiratory: Yes: Regular, CTA Bilaterally Gastrointestinal: Yes: Normal Bowel Sounds, Soft Genitourinary: Yes: Farfan Present Musculoskeletal: Yes: WNL Extremities: Yes: WNL Labs: CBC, BMP 11/16/19 05:12 11/16/19 05:12 INR, PTT INR 1.21 (0.83-1.09) H 11/13/19 15:03 Assessment/Plan Problem List - Problems (1) Hematuria Code(s): R31.9 - HEMATURIA, UNSPECIFIED Qualifiers: Hematuria type: gross Qualified Code(s): R31.0 - Gross hematuria (2) Postprocedural urinary retention Code(s): N99.89 - OTH POSTPROCEDURAL COMPLICATIONS AND DISORDERS OF SYS; R33.8 - OTHER RETENTION OF URINE Assessment/Plan 74 y.o. male with PMH of CAD s/p CABG, CKD s/p renal transplant in 2018 (on Prograf, Prednisone, MMF), Prostate CA s/p RT, HTN, HLD, COPD presented to the ER with c/o severe suprapubic pain/spasms and inability to urinate for 2 days s/ p recent cystoscopy and 2 wks of hematuria Urethral stone Urinary retention Hematuria UTI RADHA CKD s/p renal transplant Hx of Prostate CA s/p RT CAD s/p CABG HTN HLD plan continue current mgmt on discharge can stop abx
[2019-11-16 15:43] VITALS: BP 133/68; PULSE 82; TEMP 97.9
== END 2019-11-16 16:02 | disposition home or self-care (01) | DRG 699 ==
LOC: JER 13:50 → JERBED 17:45 → J4W 21:51 → OBSVTOIN 11-14 07:39
PROVIDERS: ADMIT Family Medicine; ATTEND Family Medicine
PROC: 0T7D8ZZ Dilation of Urethra, Via Natural or Artificial Opening Endoscopic (ICD-10-PCS; principal; 2019-11-14 18:00)
DX: N99.89 Other postprocedural complications and disorders of genitourinary system (principal); Z94.0 Kidney transplant status; N17.9 Acute kidney failure, unspecified; I24.8 Other forms of acute ischemic heart disease; I48.92 Unspecified atrial flutter; N39.0 Urinary tract infection, site not specified; E78.5 Hyperlipidemia, unspecified; J44.9 Chronic obstructive pulmonary disease, unspecified; R33.8 Other retention of urine; R31.0 Gross hematuria; I25.10 Atherosclerotic heart disease of native coronary artery without angina pectoris; N21.1 Calculus in urethra; N20.0 Calculus of kidney; I48.91 Unspecified atrial fibrillation; I12.9 Hypertensive chronic kidney disease with stage 1 through stage 4 chronic kidney disease, or unspecified chronic kidney disease; E11.22 Type 2 diabetes mellitus with diabetic chronic kidney disease; N18.9 Chronic kidney disease, unspecified; N35.919 Unspecified urethral stricture, male, unspecified site; Z95.5 Presence of coronary angioplasty implant and graft; Z95.1 Presence of aortocoronary bypass graft; Z85.46 Personal history of malignant neoplasm of prostate
CPT/HCPCS: 36415; 71045-TC-FY; 74176-TC; 76000-TC-FY; 80048; 80053; 80197; 81003; 82550; 82962; 83036; 84484; 85025; 85027; 85610; 85730; 87086; 93005; 93010; 93306-TC; 94760; 99285-25; G0378; J7030; J7517

== ENCOUNTER 2023-12-21 16:26 | Emergency (ER) | payer OTHER, BC ==
[2023-12-21 16:38] VITALS: BMI 26.6
[2023-12-21] MEDS: morphine CARPU-JECT 4 MG/1 ML DISP.SYRIN IVPUSH ONE (17:56)
[2023-12-21] MEDS: SODIUM CHLORIDE 0.9% 500 ML INFUS.BAG IV ONE (17:57)
[2023-12-21 17:58] LABS: BASO % 1.1 % (0-2.0); HEMATOCRIT 30.5 % (35.4-49); HEMOGLOBIN 9.8 GM/dL (11.7-16.9); LYMPH % 4.3 % (8-40); MCH 25.3 pg (25.7-33.7); MEAN CELL VOLUME 79.1 fl (80-96); MEAN PLT VOLUME 7.9 fl (7.5-11.1); MONO % 11.8 % (3.8-10.2); NEUT % 82.8 % (42.8-82.8); PLATELET COUNT 267 10^3/uL (134-434); RBC 3.85 M/mm3 (4.00-5.60); WHITE BLOOD COUNT 3.9 K/mm3 (4.0-10.0)
[2023-12-21 18:06] LABS: INR 1.34 (0.83-1.09); PROTHROMBIN TIME (PATIENT) 15.5 SEC (9.7-13.0)
[2023-12-21 18:09] LABS: ACTIVATED PTT 32.1 SECONDS (25.2-36.5)
[2023-12-21 18:32] LABS: POTASSIUM 3.6 mmol/L (3.5-5.1)
[2023-12-21 18:35] LABS: ALBUMIN 2.8 g/dl (3.4-5.0); BLOOD UREA NITROGEN 21.8 mg/dL (7-18); MAGNESIUM 1.6 mg/dL (1.8-2.4)
[2023-12-21 18:37] LABS: CREATININE 1.1 mg/dL (0.55-1.3); PHOSPHOROUS 2.5 mg/dL (2.5-4.9)
[2023-12-21 18:39] LABS: BILIRUBIN,TOTAL 0.4 mg/dL (0.2-1); TOT PROT 6.8 g/dl (6.4-8.2)
[2023-12-21] MEDS ORDERED: ACETAMINOPHEN INJECTION 100 ML IVPB ONE (19:46)
[2023-12-21] MEDS ORDERED: MAGNESIUM SULFATE IN WATER 2 GM/50 ML IVPB IVPB ONE (19:46)
[2023-12-21] MEDS: ACETAMINOPHEN 1000 MG/100 ML BAG IVPB ONE (19:53)
[2023-12-21] MEDS: morphine SULFATE 4 MG/ML VIAL IVPUSH ONE (19:53)
[2023-12-21] MEDS: MAGNESIUM SULF 50% (8.12 MEQ/2 ML-1 GM VIAL) IVPB ONE (20:34)
[2023-12-21] MEDS ORDERED: MAG HYDROX/AL HYDROX/SIMETH 30 ML UNIT-DOSE CUP ONE (22:30)
[2023-12-21] MEDS: MAG HYDROX/AL HYDROX/SIMETH 30 ML UNIT-DOSE CUP PO ONE (22:43)
[2023-12-22] MEDS ORDERED: morphine SULFATE 4 MG/ML VIAL ONE ×2 (00:29→03:15)
[2023-12-22] MEDS: morphine CARPU-JECT 4 MG/1 ML DISP.SYRIN IVPUSH ONE ×2 (00:34→03:19)
[2023-12-22 03:34] VITALS: BP 122/78; PULSE 78; RESP 20; TEMP 97.9
== END 2023-12-22 03:33 | disposition short-term general hospital (02) ==
LOC: JER 16:26
PROC: 3E033NZ Introduction of Analgesics, Hypnotics, Sedatives into Peripheral Vein, Percutaneous Approach (ICD-10-PCS; principal; 2023-12-21)
PROC: 3E033GC Introduction of Other Therapeutic Substance into Peripheral Vein, Percutaneous Approach (ICD-10-PCS; 2023-12-21)
PROC: 3E033GC Introduction of Other Therapeutic Substance into Peripheral Vein, Percutaneous Approach (ICD-10-PCS; 2023-12-21)
PROC: 3E033GC Introduction of Other Therapeutic Substance into Peripheral Vein, Percutaneous Approach (ICD-10-PCS; 2023-12-21)
PROC: 3E033GC Introduction of Other Therapeutic Substance into Peripheral Vein, Percutaneous Approach (ICD-10-PCS; 2023-12-22)
PROC: 3E033GC Introduction of Other Therapeutic Substance into Peripheral Vein, Percutaneous Approach (ICD-10-PCS; 2023-12-22)
DX: R10.30 Lower abdominal pain, unspecified (principal); K56.609 Unspecified intestinal obstruction, unspecified as to partial versus complete obstruction; R10.84 Generalized abdominal pain; Z20.822 Contact with and (suspected) exposure to COVID-19
CPT/HCPCS: 0241U-QW; 36415; 74177-TC; 80053; 83690; 83735; 84100; 85025; 85610; 85730; 86850; 86900; 86901; 87086; 93005; 93010; 99285-25; J0131; Q9967